=== PATIENT | male | born 2000 | race Hispanic/Latino ===

== ENCOUNTER 2019-10-29 02:13 | Inpatient (IN) | payer SELFPAY ==
[~2019-10-29] VITALS: Ht 185.4 cm; Wt 79.4 kg
[2019-10-29] MEDS ORDERED: SODIUM CHLORIDE 0.9% 1000ML 1,000 ML IV STA ×2 (02:24)
[2019-10-29] MEDS ORDERED: SODIUM CHLORIDE 0.9% 1000ML 2,000 ML ONE (02:31)
[2019-10-29 02:35] LABS: BASOPHILS % 0.2 % (0.0-1.0); EOSINOPHILS # (AUTO) 0.1 (0.0-0.4); EOSINOPHILS % 0.8 % (0.0-6.0); HEMATOCRIT 44.7 % (38.2-49.6); LYMPHOCYTES # (AUTO) 3.5 (1.0-3.2); LYMPHOCYTES % 40.6 % (18.0-39.1); MEAN CORPUSCULAR HEMOGLOBIN 26.9 pg (28-32); MEAN CORPUSCULAR HGB CONC 33.6 g/dL (31-35); MEAN CORPUSCULAR VOLUME 80.3 fL (81-99); MONOCYTES # (AUTO) 0.5 (0.2-0.8); MONOCYTES % 5.7 % (4.4-11.3); NEUTROPHILS # (AUTO) 4.5 (2.1-6.9); NEUTROPHILS % 52.5 % (38.7-80.0); PLATELET COUNT 239 x10e3/uL (140-360); RED BLOOD COUNT 5.57 x10e6/uL (4.3-5.7); RED CELL DISTRIBUTION WIDTH 12.3 % (11.7-14.4)
--- NOTE | 2019-10-29 02:44 | Emergency Department Note ---
History of Present Illnes History of Present Illness Chief Complaint: Alcohol Abuse/Intoxication History of Present Illness This is a 19 year old male brought by EMS for alcohol intoxicatoin. patietn was found passed out by family members but was easily arousable. Police was called to the residence and patient fleed from scene. EMS arrived to scene and transported patient. Upon arrival, patient states that he was having SI . Historian: Director Of Mobile Marketing/EMS Onset (how long ago): hour(s) Severity: mild Onset quality: gradual Duration (how long): hour(s) Timing of current episode: constant Progression: partially resolved Chronicity: recurrent Context: Denies recent illness, Denies recent surgery, Denies recent immobilization, Denies recent travel, Denies trauma/injury, Denies new medications, Denies hx of DVT/PE, Denies non-compliance w/ medications, Denies other Relieving factors: none Exacerbating factors: none Associated symptoms: Denies denies other symptoms, Denies confusion, Denies chest pain, Denies cough, Denies diaphoresis, Denies fever/chills, Denies headaches, Denies loss of appetite, Denies malaise, Denies nausea/vomiting, Denies rash, Denies seizure, Denies shortness of breath, Denies syncope, Denies weakness, Denies other (DWAYNE PARMAR DO) Past Medical/Family History Physician Review I have reviewed the patient's past medical and family history. Any updates have been documented here. (DWAYNE PARMAR DO) Past Medical History Recent Fever: No Clinical Suspicion of Infectio: No New/Unexplained Change in Ment: Yes Past Medical History: None Past Surgical History: None (DWAYNE PARMAR DO) Social History Smoking Cessation: Current some day smoker Alcohol Use: Daily Any Illegal Drug Use: Yes (marijuana) (DWAYNE PARMAR DO) Review of Systems ROS Narrative Unable to obtain ROS: altered mental status (DWAYNE PARMAR DO) Physical Exam Related Data Allergies: Coded Allergies: No Known Allergies (Unverified , 10/29/19) Triage Vital Signs Vital Signs Date Time Temp Pulse Resp B/P (MAP) Pulse Ox O2 Delivery O2 Flow Rate FiO2 10/29/19 02:13 99.1 128 18 119/87 100 Room Air Vital signs reviewed: Yes (DWAYNE PARMAR DO) Physical Exam CONSTITUTIONAL Constitutional: Present well-developed, Present well-nourished, Present other (intoxicated) HENT HENT: Present normocephalic, Present atraumatic, Present oropharynx clear/moist, Present nose normal HENT L/R: Present left ext ear normal, Present right ext ear normal EYES Eyes: Reports PERRL, Reports conjunctivae normal NECK Neck: Present ROM normal PULMONARY Pulmonary: Present effort normal, Present breath sounds normal CARDIOVASCULAR Cardiovascular: Present heart sounds normal, Present tachycardia GASTROINTESTINAL Abdominal: Present soft, Present nontender, Present bowel sounds normal GENITOURINARY Genitourinary: Present exam deferred SKIN Skin: Present warm, Present dry MUSCULOSKELETAL Musculoskeletal: Present ROM normal NEUROLOGICAL Neurological: Present alert, Present oriented x 3, Present no gross motor or sensory deficits PSYCHOLOGICAL Psychological: Present mood/affect normal, Present judgement normal (DWAYNE PARMAR DO) Results Laboratory Result Diagram: 10/29/19 0223 Laboratory Laboratory Tests Test 10/29/19 02:23 White Blood Count 8.65 x10e3/uL (4.8-10.8) Red Blood Count 5.57 x10e6/uL (4.3-5.7) Hemoglobin 15.0 g/dL (14.0-18.0) Hematocrit 44.7 % (38.2-49.6) Mean Corpuscular Volume 80.3 fL (81-99) Mean Corpuscular Hemoglobin 26.9 pg (28-32) Mean Corpuscular Hemoglobin Concent 33.6 g/dL (31-35) Red Cell Distribution Width 12.3 % (11.7-14.4) Platelet Count 239 x10e3/uL (140-360) Neutrophils (%) (Auto) 52.5 % (38.7-80.0) Lymphocytes (%) (Auto) 40.6 % (18.0-39.1) Monocytes (%) (Auto) 5.7 % (4.4-11.3) Eosinophils (%) (Auto) 0.8 % (0.0-6.0) Basophils (%) (Auto) 0.2 % (0.0-1.0) Neutrophils # (Auto) 4.5 (2.1-6.9) Lymphocytes # (Auto) 3.5 (1.0-3.2) Monocytes # (Auto) 0.5 (0.2-0.8) Eosinophils # (Auto) 0.1 (0.0-0.4) Basophils # (Auto) 0.0 (0.0-0.1) Absolute Immature Granulocyte (auto 0.02 x10e3/uL (0-0.1) Lab results reviewed: Yes (DWAYNE PARMAR DO) Assessment & Plan Medical Decision Making MDM Diff Dx : drug intoxication, Suicide ideation, major depressive disorder, antisocial personality (DWAYNE PARMAR DO) MDM per dr parmar (MAYRA ANDERSEN MD) Reassessment Reassessment i received report from Dr Parmar, EtOH level decreased to ~60, i re-evaluated pt - he said he wasn't currently suicidal but then said he is worried about having to go to group home and worried about his unborn child growing up without a father - will have MAT team evaluate pt MAT evaluated pt and feel he needs involuntary admission, feels he is at high- risk for suicide at this time - there is a 2-3 week waiting list for admissions at [facility], so will admit to hospital with 1:1 sitter, have Psych Dr Soliman see pt - I spoke with Dr Doherty for admission and he agrees with plan (MAYRA ANDERSEN MD) Assessment & Plan Final Impression: (1) Suicidal ideation (2) MDD (major depressive disorder) (3) Polysubstance abuse (DWAYNE PARMAR DO) Final Impression: (1) Suicidal ideation (2) MDD (major depressive disorder) (MAYRA ANDERSEN MD) Depart Disposition: ADMITTED Medications in the ED Sodium Chloride 1,000 ml @ 0 mls/hr Q0M STAT IV Last administered on 10/29/19at 02:31; Admin Dose 999 MLS/HR; Start 10/29/19 at 02:24; Stop 10/29/19 at 02:25; Status DC Sodium Chloride 1,000 ml @ 0 mls/hr Q0M STAT IV Last administered on 10/29/19at 02:31; Admin Dose 999 MLS/HR; Start 10/29/19 at 02:24; Stop 10/29/19 at 02:25; Status DC Sodium Chloride 2,000 ml @ ud STK-MED ONCE .ROUTE ; Start 10/29/19 at 02:31; Stop 10/29/19 at 02:25; Status DC (DWAYNE PARMAR DO) DWAYNE PARMAR DO Oct 29, 2019 02:44 MAYRA ANDERSEN MD Oct 29, 2019 11:03
[2019-10-29 02:55] LABS: ALANINE AMINOTRANSFERASE 21 IU/L (0-55); ALBUMIN 4.8 g/dL (3.5-5.0); ALBUMIN/GLOBULIN RATIO 1.8 (0.8-2.0); ALKALINE PHOSPHATASE 57 IU/L (40-150); ANION GAP 21.4 mmol/L (8-16); BLOOD UREA NITROGEN 10 mg/dL (7-26); BUN/CREATININE RATIO 8 (6-25); CALCIUM 9.2 mg/dL (8.4-10.2); CARBON DIOXIDE 18 mmol/L (22-29); CHLORIDE 107 mmol/L (98-107); EST GLOMERULAR FILTRATION RATE > 60 ML/MIN (60-); GLUCOSE 85 mg/dL (74-118); POTASSIUM 3.4 mmol/L (3.5-5.1); SODIUM 143 mmol/L (136-145)
--- NOTE | 2019-10-29 02:55 | NUR ---
Patient placed in paper scrubs at this time. Belongings removed from room
[2019-10-29 02:57] LABS: SALICYLATE < 5.0 mg/dL (0-30)
--- OUTSIDE RECORDS SUMMARY | 2019-10-29 03:05 | XMS REPORT | Continuity of Care Document ---
Author Author [facility] t Organization [facility] Address [address] [place] [address] Phone Unavailable Care Team Providers Care Distribution Lead Name Role Phone Unavailable Unavailable Payers Payer Name Policy Type Policy Number Effective Date Expiration Date S ource Problems This patient has no known problems. Allergies, Adverse Reactions, Alerts Allergy Name Allergy Type Status Severity Reaction(s) Onset Date Inacti ve Date Treating Clinician Comments Source No Known Allergies DA Active U 2019-09-06 00:00:00 [facility] No Known Allergies DA Active U 2017-12-14 00:00:00 [facility] No Known Allergies DA Active U 2015-08-14 00:00:00 [facility] Medications This patient has no known medications. Procedures This patient has no known procedures. Results Test Description Test Time Test Comments Results Result Comments Source Novel Coronavirus 2019 nCoV 2019-09-10 13:22:00 Test Item Novel Coronavirus 2019 nCoV (test code = COVID19) Negative Does patient have the clinical criteria consistent with COVID-19? YIs the patien t going to be discharged home? YSTREPTOCOCCUS PCR [id number] 09:12:00* Test Item Value Reference Range Interpretation Comments STREPTOCOCCUS DYSGALACTIAE (test code = STREPGC) NEGATIVE FOR G/C N EGATIVE STREPA MOLECULAR (test code = STREPAMOL) NEGATIVE FOR GRP A NEGATIV E - XR CHEST 1 [id number] 00:28:00 Name: ARTHUR OSCAR [facility] : 2000 Age/S:19 /M [address] [place] [address] Unit#:[id number] Loc: M[place] [address] Phys: Ciera Downing MD Dis Date: PHONE #: [phone] Status: PRE ER FAX #: [phone] Exam Date: 09/06/2019 Reason: COUGH AND SORE THROAT EXAMS: CPT CODE: [id number] XR CHEST 1 V [id number] EXAM: - XR CHEST 1 V COMPARISON: 11/29/2009 LOCATION: H57 HISTORY: 19 years-old Male with COUGH AND SORE THROAT FINDINGS: The cardiomediastinal silhouette is within normal limits. The lungs are well aerated. No large pneumothorax or pleural effusion. Osseous structures and soft tissues demonstrate no acute findings. The visualized upper abdomen is unremarkable. IMPRESSION: No acute cardiopulmonary abnormality. at 0028 Reported and signed by: Ru Eaton M.D. CC: Vitor Longoria Technologist: JAYLAN PANDEY RT(R),CT Trnscrpt Data: 09/06/2019 (0028) [email or web address] Orig Print D/T: S: 09/06/2019 (0031) PAGE 1 Signed Report - XR HAND 3 + V [id number] 22:43:00 Name: ARTHUR OSCAR [facility] : 2000 Age/S:18 /M [address] [place] [address] Unit#:[id number] Loc: [place] [address] Phys: Rachel Hong SAUSAGE CANNER Dis Date: PHONE #: [phone] Status: REG ER FAX #: [phone] Exam Date: 02/19/2019 Reason: punched a wall 3 days ago EXAMS: CPT CODE: [id number] XR HAND 3 + [place] [id number] HISTORY: Pain after trauma. COMPARISON: X-ray from August 17, 2015. Location: TH. 3 views of the left hand: No acute fracture or dislocation. Joint spaces are preserved. No AVN of the lunate or the scaphoid bones. IMPRESSION: No acute fracture or dislocation. Joint spaces are preserved. at 6303 Reported and signed by: Gurmeet Li M.D. CC: Vitor Longoria Technologist: ABRAHAM KO RT(R),RDMS,CT Trnscrpt Data: 02/19/2019 (6070) [email or web address] Orig Print D/T: S: 02/19/2019 (6274) PAGE 1 Signed Report
[2019-10-29 03:42] LABS: AMPHETAMINES SCREEN,URINE NEGATIVE (NEGATIVE); BENZODIAZEPINES SCREEN,URINE POSITIVE (NEGATIVE); PHENCYCLIDINE SCREEN,URINE NEGATIVE (NEGATIVE)
--- NOTE | 2019-10-29 04:01 | NUR ---
PT SLEEPING AT THIS TIME. NAD NOTED AT THIS TIME. BED IS LOCKED AND IN LOWEST POSITION. WILL CONTINUE TO MONITOR.
--- NOTE | 2019-10-29 06:42 | NUR ---
Sitter at bedside.
--- NOTE | 2019-10-29 06:50 | NUR ---
Belongings given to security at this time.
--- NOTE | 2019-10-29 06:55 | NUR ---
Report to LAURA Curry
--- NOTE | 2019-10-29 06:55 | NUR ---
report received from Long Duenas RN
--- NOTE | 2019-10-29 07:15 | NUR ---
patient sleeping in bed at this time, no distress noted, pt was placed in paper scrubs by previous shift, 1:1 sitter at bedside
--- NOTE | 2019-10-29 07:50 | NUR ---
Dr. Sinclair at bedside, patient states that he is not feeling suicidal at this time, denies A/V hallucinations, pt states that he had a mental breakdown last night and ended up drinking a bottle of liquor, states that he is going to be "locked up soon and I just want my kid to be taken care of"
--- NOTE | 2019-10-29 08:16 | NUR ---
as per Dr. Sinclair, MAT Team to be called to assess pt in ED
--- NOTE | 2019-10-29 08:17 | NUR ---
MAT Team called at this time, voice mail left requesting a call back
--- NOTE | 2019-10-29 08:22 | NUR ---
Sari, Public Speaking Coach contacted at this time
--- NOTE | 2019-10-29 08:30 | NUR ---
CALLED MAT TEAM AND SPOKE WITH HOMER, CALLED IN FOR ASSESSMENT ON THIS PT. GAVE LEVELS OF LABS. THEY WILL SEND OUT CLINICIAN FOR ASSESSMENT, CALLED AND NOTIFIED STAFF IN ED. ALSO LET KNOW PT IS SELF PAY. PLEASE CHECK BENEFITS.
--- NOTE | 2019-10-29 08:51 | NUR ---
Colleen from [facility] Team states that her ETA is [phone]
--- NOTE | 2019-10-29 08:52 | NUR ---
SPOKE WITH PT, NOT CURRENTLY SEEING A PHYSICIAN OF ANY KIND, LIVES WITH MOTHER, GETS CONFUSED IN HIS ACCOUNTING OF WHAT HAPPENED TO GET HIM HERE. STATES JUST NEED A PRESCRIPTION FOR HIS ANXIETY ATTACKS. LET HIM KNOW THE MAT TEAM IS ON WAY TO ASSESS HIM FOR SERVICES.
--- NOTE | 2019-10-29 09:29 | NUR ---
Colleen from MAT Team at bedside
--- NOTE | 2019-10-29 09:56 | NUR ---
MAT TEAM HERE TO ACCESS PT, THERE IS A 2 WEEK WAIT LIST FOR [facility] NON FUNDED.
--- OUTSIDE RECORDS SUMMARY | 2019-10-29 11:41 | XMS REPORT | Continuity of Care Document ---
Author Author [facility] t Organization [facility] Address [address] [place] [address] Phone Unavailable Care Team Providers Care Wet Machine Operator Name Role Phone Unavailable Unavailable Payers Payer Name Policy Type Policy Number Effective Date Expiration Date S ource Problems This patient has no known problems. Allergies, Adverse Reactions, Alerts Allergy Name Allergy Type Status Severity Reaction(s) Onset Date Inacti ve Date Treating Clinician Comments Source No Known Allergies DA Active U 2019-09-06 00:00:00 [facility] No Known Allergies DA Active U 2017-12-14 00:00:00 [facility] No Known Allergies DA Active U 2015-08-14 00:00:00 [facility] Medications This patient has no known medications. Procedures This patient has no known procedures. Results Test Description Test Time Test Comments Results Result Comments Source Novel Coronavirus 2019 nCoV 2019-09-10 13:22:00 Test Item Novel Coronavirus 2019 nCoV (test code = COVID19) Negative Does patient have the clinical criteria consistent with COVID-19? YIs the patien t going to be discharged home? YSTREPTOCOCCUS PCR [id number] 09:12:00* Test Item Value Reference Range Interpretation Comments STREPTOCOCCUS DYSGALACTIAE (test code = STREPGC) NEGATIVE FOR G/C N EGATIVE STREPA MOLECULAR (test code = STREPAMOL) NEGATIVE FOR GRP A NEGATIV E - XR CHEST 1 [id number] 00:28:00 Name: ARTHUR OSCAR [facility] : 2000 Age/S:19 /M [address] [place] [address] Unit#:[id number] Loc: M[place] [address] Phys: Ciera Downing MD Dis Date: PHONE #: [phone] Status: PRE ER FAX #: [phone] Exam Date: 09/06/2019 Reason: COUGH AND SORE THROAT EXAMS: CPT CODE: [id number] XR CHEST 1 V [id number] EXAM: - XR CHEST 1 V COMPARISON: [...] Report - XR HAND 3 + V [id number] 22:43:00 Name: ARTHUR OSCAR [facility] : 2000 Age/S:18 /M [address] [place] [address] Unit#:[id number] Loc: M[place]ly [place] [address] Phys: Rachel Hong LEATHER CUTTER Dis Date: PHONE #: [phone] Status: REG ER FAX #: [phone] Exam Date: 02/19/2019 Reason: punched a wall 3 days ago EXAMS: CPT CODE: [id number] XR HAND 3 + [place] [id number] HISTORY: Pain after trauma. COMPARISON: X-ray from August 17, 2015. Location: TH. 3 views of the left hand: No acute fracture or dislocation. Joint spaces are preserved. No AVN of the lunate or the scaphoid bones. IMPRESSION: No acute fracture or dislocation. Joint spaces are preserved. at 1878 Reported and signed by: Gurmeet Li M.D. CC: Vitor Longoria Technologist: ABRAHAM KO RT(R),RDMS,CT Trnscrpt Data: 02/19/2019 (9142) [email or web address] Orig Print D/T: S: 02/19/2019 (9432) PAGE 1 Signed Report
[2019-10-29] MEDS ORDERED: ZIPRASIDONE 20 MG VIAL IM STA (13:44)
[2019-10-29] MEDS ORDERED: LORAZEPAM INJ 2 MG/ML VIAL IM ONE (13:45)
[2019-10-29 17:55] VITALS: BP 121/65
--- NOTE | 2019-10-29 19:09 | NUR ---
Adrienne reports patient had 2 episodes of emisis on her shift today
[2019-10-29 20:00] VITALS: BP 112/67
[2019-10-29] MEDS ORDERED: ACETAMINOPHEN 325 MG TAB PO PRN (20:45)
[2019-10-29] MEDS ORDERED: HYDRALAZINE HCL 20 MG/ML VIAL IV PRN (20:45)
[2019-10-29] MEDS ORDERED: ONDANSETRON HCL INJ 2MG/ML 2ML 2 MG/ML VIAL IV PRN (20:45)
[2019-10-29 20:51] VITALS: BP 112/67
[2019-10-30 04:00] VITALS: BP 123/74
--- NOTE | 2019-10-30 04:15 | NUR ---
PATIENT AND SITTER REPORT THREE EPISODES OF EMESIS
[2019-10-30 05:51] LABS: BASOPHILS % 0.2 % (0.0-1.0); EOSINOPHILS # (AUTO) 0.1 (0.0-0.4); EOSINOPHILS % 1.2 % (0.0-6.0); HEMATOCRIT 45.3 % (38.2-49.6); HEMOGLOBIN 14.6 g/dL (14.0-18.0); LYMPHOCYTES # (AUTO) 1.9 (1.0-3.2); LYMPHOCYTES % 23.5 % (18.0-39.1); MEAN CORPUSCULAR HEMOGLOBIN 26.4 pg (28-32); MEAN CORPUSCULAR HGB CONC 32.2 g/dL (31-35); MEAN CORPUSCULAR VOLUME 82.1 fL (81-99); MONOCYTES # (AUTO) 0.5 (0.2-0.8); MONOCYTES % 6.1 % (4.4-11.3); NEUTROPHILS # (AUTO) 5.5 (2.1-6.9); NEUTROPHILS % 68.8 % (38.7-80.0); PLATELET COUNT 218 x10e3/uL (140-360); RED BLOOD COUNT 5.52 x10e6/uL (4.3-5.7); RED CELL DISTRIBUTION WIDTH 12.6 % (11.7-14.4)
[2019-10-30 06:12] LABS: ALANINE AMINOTRANSFERASE 19 IU/L (0-55); ALBUMIN 4.6 g/dL (3.5-5.0); ALBUMIN/GLOBULIN RATIO 1.8 (0.8-2.0); ALKALINE PHOSPHATASE 63 IU/L (40-150); ANION GAP 18.5 mmol/L (8-16); BLOOD UREA NITROGEN 8 mg/dL (7-26); BUN/CREATININE RATIO 8 (6-25); CALCIUM 9.2 mg/dL (8.4-10.2); CARBON DIOXIDE 23 mmol/L (22-29); CHLORIDE 101 mmol/L (98-107); CREATININE, SERUM 0.95 mg/dL (0.72-1.25); EST GLOMERULAR FILTRATION RATE > 60 ML/MIN (60-); GLUCOSE 78 mg/dL (74-118); POTASSIUM 3.5 mmol/L (3.5-5.1); SODIUM 139 mmol/L (136-145)
--- NOTE | 2019-10-30 07:20 | NUR ---
REPORT GIVEN TO DAYSHIFT NURSE. ALERT AND RESTING IN BED. NO SIGNS IV INFILTRATION. BED LOCKED AND IN LOW POSITION. CALL LIGHT WITHIN REACH. SITTER AT BEDSIDE.
[2019-10-30] MEDS ORDERED: FAMOTIDINE 20 MG TAB PO SCH (07:30)
--- NOTE | 2019-10-30 07:31 | NUR ---
ASSUMED CARE. AAOX3. ACYANOTIC. RESTING IN BED. SITTER PRESENT AT BEDSIDE. NO DISTRESS NOTED. CALL LIGHT IN REACH. SIDE RAILS UP X2. BED LOW AND LOCKED.
[2019-10-30 07:49] VITALS: BP 126/78
[2019-10-30 08:00] VITALS: BP 126/78
[2019-10-30 11:29] VITALS: BP 109/66
--- NOTE | 2019-10-30 13:22 | NUR ---
CALL PLACED TO DR. FLORES'S ANSWERING SERVICE TO NOTIFY HIM OF ROUTINE CONSULT. BUFFER NICKEL SAID, "I WILL PAGE HIM OUT"
[2019-10-30 15:58] VITALS: BP 130/75
--- NOTE | 2019-10-30 16:13 | Discharge Summary ---
The patient does not have a primary care physician. The patient was taken out AMA by his family. ADMITTING DIAGNOSES: 1. Drug and alcohol overdose. 2. Suicide attempt. 3. Depression. DISCHARGE DIAGNOSES: 1. Drug and alcohol overdose. 2. Suicide attempt. 3. Depression. BRIEF HISTORY: Mr. Kelly is a 19-year-old gentleman, had a breakup with his girlfriend, who is and got some alcohol and some Xanax, and attempted suicide with an overdose. The patient brought in very lethargic. He was observed overnight and the following day, he was awake, alert, and oriented. He was seen by Psychiatry, who felt the patient needed mandatory admission. However, his warrant has not been signed by the supply tech. The family is going to take the patient out AMA. They have signed AMA form that includes the fact that they will assume full responsibility for his actions and the consequences, that they will assume full responsibility for his medical and psychiatric care, and that they will ensure that he receives outpatient followup by the psychiatrist of their choice. MD ZAK Wakefield/SANGEETHA /[id number]
--- NOTE | 2019-10-30 17:27 | NUR ---
PATIENT DEPARTED FROM UNIT AT APPROXIMATELY 1645 WITH MOTHER. BOTH SIGNED AMA DOCUMENT WITH UNDERSTANDING THAT IT IS RECOMMENDED THAT THE PATIENT RECEIVED PSYCHIATRIC CARE. MOTHER, CHIRAG, ASSUMED RESPONSIBLITY FOR PATIENT AND ENSURES THAT SHE WILL HELP PATIENT RECEIVE TREATMENT WITH DR. DAVID ALLEN. NO DISTRESS NOTED. PATIENT DENIES SUICIDAL IDEATION.
--- NOTE | 2019-10-30 20:23 | Consultation ---
DATE OF CONSULTATION: Psychiatry Consult REASON FOR CONSULTATION: For treatment and evaluation of the patient's depression and suicidal ideation. HISTORY OF PRESENT ILLNESS: The patient is a 19-year-old male, who is admitted to [facility] because he overdosed on alcohol and Xanax in a suicide attempt. Psychiatry Consult is called to evaluate the patient's depression and suicidal ideation. Upon evaluation today, the patient is found to be sitting on his bed. He is alert, awake, oriented to situation. He states that he broke up with his girlfriend and become very depressed. He went to his sister's house where he started drinking alcohol and took some bars and the next thing he knew that he was in the hospital. He also stated that he made suicidal comments when he was intoxicated. He became tearful about talking about his friend, who recently in a car accident. The patient sometimes feels hopeless and helpless. He states he is not able to sleep and eat very well. He denies any hallucinations. He is minimizing his psychiatric symptoms and does not want to go to inpatient's psychiatry at this time. PAST PSYCHIATRIC HISTORY: The patient states he has never been treated by psychiatrist in the past. He claims that he does not drink alcohol regularly and he smokes marijuana on and off. He denies abusing any prescription medications or recreational drugs. FAMILY HISTORY: The patient denies any family history of psychiatric illness. SOCIAL HISTORY: The patient states that he lives with his mother. LABORATORY DATA: Current labs, WBC 8.03, hemoglobin 14.6, hematocrit 45.3, platelets 218. Sodium 139, potassium 3.5, chloride 101, BUN 8. Urine toxicology is positive for marijuana and benzos. MENTAL STATUS EXAMINATION: The patient is young male, who is currently sitting on his bed. He is restless, but cooperative. His mood is depressed and anxious with appropriate affect. He denies any suicidal or homicidal ideation at present. He denies any abnormal perception at present. No dilutions are elicited. His thought process is goal directed. His insight and judgment are limited. DIAGNOSES: AXIS I: 1. Major depressive disorder, single episode, severe without psychosis. 2. Alcohol and benzo abuse. PLAN OF CARE: 1. Add Zoloft 50 mg p.o. daily. 2. Recommended total abstinence from alcohol and drugs. 3. Supportive therapy. 4. Recommended inpatient psychiatry, but the patient refused. 5. Continue with MAT team assessment. Thank you very much for this consult. MD PIERO Vela/MODL /[id number]
[2019-10-31] MEDS ORDERED: SERTRALINE HCL 50 MG TAB PO SCH (09:00)
--- NOTE | 2019-11-01 07:51 | NUR ---
NOTIFIED PT LEFT AMA, NOTIFIED MAT TEAM TO DISMISS WARRANT AND HARMEET, ALSO LET NURSING SUPERVISION KNOW THAT THIS WAS NOT REPORTED TO THE MAT TEAM.
== END 2019-10-30 16:45 | disposition left against medical advice (07) | DRG 918 ==
LOC: ER 02:45 → ERHOLD 11:03 → MED/SURG2 17:09
PROVIDERS: ADMIT Internal Medicine; ATTEND Internal Medicine
DX: T51.0X2A Toxic effect of ethanol, intentional self-harm, initial encounter (principal); F32.2 Major depressive disorder, single episode, severe without psychotic features; R45.851 Suicidal ideations; T42.4X2A Poisoning by benzodiazepines, intentional self-harm, initial encounter; F17.210 Nicotine dependence, cigarettes, uncomplicated; F12.90 Cannabis use, unspecified, uncomplicated; Z11.59 Encounter for screening for other viral diseases; T51.0X1A Toxic effect of ethanol, accidental (unintentional), initial encounter; Y90.6 Blood alcohol level of 120-199 mg/100 ml
CPT/HCPCS: 36415; 80053; 80307; 80320; 80329; 85025; 93005; 99285; J2060; J2405; J3486; J7030; U0002

== ENCOUNTER 2020-04-13 10:29 | Emergency (ER) | payer SELFPAY ==
[~2020-04-13] VITALS: Ht 185.4 cm; Wt 79.4 kg
== END 2020-04-13 10:53 | disposition home or self-care (01) ==
LOC: ER 10:49
DX: J02.0 Streptococcal pharyngitis (principal)
CPT/HCPCS: 99283